=== PATIENT | male | born 1950 | race Caucasian/White ===

== ENCOUNTER → 2016-09-29 | Outpatient (CLI) | payer OTHER ==
--- NOTE | 2016-09-29 16:57 | CT ---
Unenhanced CT Scan of the Right Hip (Pre-Makoplasty Protocol) Clinical History: 66-year-old male who sustained trauma in January 2016, and anticipates a right hip arth roplasty on October 06, 2016, presenting preoperatively. ICD-10 Diagnostic Code: M16.9. Technique: A multidetector unenhanced helical CT scan was obtained from the L4 level through the mid- femoral diaphyses, and reformatted at 0.625 mm increments and then subsequently 2.50 mm helically-acq uired images were obtained to the level of the tibial plateaus. Images were reviewed in soft tissue a nd bone windows. Parasagittal and paracoronal reconstructed images were also reviewed. This exam was tailored as a pre-Makoplasty protocol. Dose reduction measures were also applied. Comparison Study: Spot fluoroscopy film associated with right hip injection, dated April 05, 2016. Findings: There is severe degenerative osteoarthrosis of the right hip with a "qxyr-lw-[id number]" phenome non and associated subchondral geode formation and sclerosis and a "coxa magna" configuration of the femoral head. Moderate degenerative osteoarthrosis of the left hip is also observed. There is severe degenerative disk space narrowing at L4-L5, where there is a vacuum disk phenomenon and L5-S1 where t here is some disk calcification. Moderate centripetal and subcutaneous obesity are present. There are some degenerative features of the SI joints. A few scattered sigmoid colon diverticula are noted. Th ere is a tiny fat-containing periumbilical hernia. There is atherosclerotic calcification associated with the abdominal aortoiliac tree. The urinary bladder is moderately distended. The prostate gland i s normal in size. The seminal vesicles are unremarkable. There is a phlebolith in the caudal right he mipelvis. There is some mild right lateral patellar subluxation and moderate right lateral patellofem oral joint space narrowing with some peripheral lateral and peripheral medial patellar spurs. There i s a [id number] degree of left lateral patellofemoral joint space narrowing, as well. There is n o suprapatellar joint effusion. Impression: Severe osteoarthritic features associated with the right hip, and moderate osteoporosis of the left hip. Images were acquired as part of a preoperative Makoplasty protocol.
== END ==
LOC: FIMAGING 14:14
PROVIDERS: ATTEND Orthopaedic Surgery
DX: Z01.818 Encounter for other preprocedural examination (principal); M16.0 Bilateral primary osteoarthritis of hip

== ENCOUNTER → 2016-10-05 | Outpatient (CLI) | payer OTHER | LOC: BHFA 14:00 | PROVIDERS: ATTEND Internal Medicine Interventional Cardiology | DX: Z01.818 Encounter for other preprocedural examination (principal); R94.31 Abnormal electrocardiogram [ECG] [EKG] | CPT/HCPCS: 78452; 93017; A9500; J2785 ==

== ENCOUNTER 2016-10-06 07:51 | Inpatient (IN) | payer OTHER ==
[~2016-10-06 07:51] MED LIST: ACETAMINOPHEN 325 MG TAB PO ONE; CEFAZOLIN 2 GM/DEXTR 100 ML IV ONE; CHLORHEXIDINE GLUC HIBICLENS 118 ML BTL TP ONE; DEXAMETHASONE 4 MG/ML VIAL IVP ONE; FAMOTIDINE 20 MG TAB PO ONE; ROPI/epiNEPH/KETOROLAC JOINT COCKTAIL IU ONE; SKIN ADHESIVE (DERMABOND) 1 EACH TP ONE; TRANEXAMIC ACID 3,000 MG in NS 50 ML IRR ONE; TRANEXAMIC ACID 3,000 MG/50 ML BAG IRR ONE
[2016-10-06] MEDS ORDERED: LIDOCAINE 1% 5 ML SDV ID PRN (08:46)
[2016-10-06] MEDS ORDERED: LR 1,000 ML IV ONE (08:46)
[2016-10-06] MEDS ORDERED: LIDOCAINE 1% 5 ML SDV ONE (08:51)
[2016-10-06] MEDS ORDERED: MIDAZOLAM 2 MG/2 ML VIAL ONE (09:54)
[2016-10-06] MEDS ORDERED: fentaNYL 100 MCG/2 ML INJ ONE ×3 (09:56→12:04)
[2016-10-06] MEDS ORDERED: PROPOFOL/EMULSION 500 MG/50 ML BOTTLE IV ONE ×2 (09:56→10:44)
[2016-10-06] MEDS ORDERED: LABETALOL HCL 5 MG/ML 20 ML MDV ONE (10:42)
[2016-10-06] MEDS ORDERED: METOCLOPRAMIDE 10 MG/2 ML VIAL IVP PRN (11:42)
[2016-10-06] MEDS ORDERED: TEMAZEPAM 15 MG CAP PO PRN (11:42)
[2016-10-06] MEDS ORDERED: ONDANSETRON 4 MG/2 ML VIAL IVP PRN (11:42)
[2016-10-06] MEDS ORDERED: PROMETHAZINE HCL 25 MG/ML VIAL IVP PRN (11:42)
[2016-10-06] MEDS ORDERED: LACTULOSE 20 GM/30 ML UDCUP PO PRN (11:42)
[2016-10-06] MEDS ORDERED: PROMETHAZINE HCL 25 MG SUPPR PR PRN (11:42)
[2016-10-06] MEDS ORDERED: DIPHENOXYLATE/ATROPINE LOMOTIL 1 TAB PO PRN (11:42)
[2016-10-06] MEDS ORDERED: PHARMACY PAIN CONSULT 1 EA MISC PRN (11:42)
[2016-10-06] MEDS ORDERED: CYCLOBENZAPRINE 10 MG TAB PO PRN (11:42)
[2016-10-06] MEDS ORDERED: diphenhydrAMINE 25 MG CAP PO PRN (11:42)
[2016-10-06] MEDS ORDERED: ONDANSETRON DISINTEGRATING 4 MG TAB PO PRN (11:42)
[2016-10-06] MEDS ORDERED: MAGNESIUM HYDROXIDE 30 ML UDCUP PO PRN (11:42)
[2016-10-06] MEDS ORDERED: BISACODYL 10 MG SUPP PR PRN (11:42)
[2016-10-06] MEDS ORDERED: POLYETHYLENE GLYCOL 3350 17 GM PKT PO PRN (11:42)
--- NOTE | 2016-10-06 11:42 | POSTOPPROG ---
Post Op Note Date of Operation: 10/06/16 Surgeon: Leyda Evans Armored Car Guard: indira evans Anesthesiologist: dr. dennis davis Anesthesia: Spinal Pre-op Diagnosis: Right hip OA Post-op Diagnosis: same Indication: right hip pain due to OA that failed conservative measures Procedure: R YANET ant approach robot assisted Findings: severe hip OA Inf/Abcess present in the surg proc area at time of surgery?: No EBL: 100-500
[2016-10-06] MEDS ORDERED: LR 1,000 ML IV SCH (12:00)
--- NOTE | 2016-10-06 12:14 | DX ---
Portable AP Pelvis, Centered at the Hips, at 11:56 a.m. Clinical History: 66-year-old male in the PACU after a hip arthroplasty. Comparison Study: CT scan of the right hip, dated September 29, 2016. Findings: In the interim, the patient has undergone a complete right hip arthroplasty, with anatomic alignment of the femoral and acetabular components. The femoral cris is well-centered. There is elmer lly expected postoperative air in the soft tissues. There are some degenerative osteoarthritic change s associated with the left hip, with axial joint space narrowing and some femoral and acetabular dege nerative spurring. Impression: Status post right knee arthroplasty, with anatomic alignment.
[2016-10-06] MEDS: ACETAMINOPHEN 325 MG TAB PO SCH ×3 (13:05→23:32)
[2016-10-06] MEDS: ceFAZolin 2 GM/DEXTROSE 100 ML IV SCH ×2 (14:43→21:17)
[2016-10-06] MEDS: oxyCODONE IR 5 MG TAB PO PRN (15:30)
--- NOTE | 2016-10-06 16:58 | DX ---
Intraoperative fluoroscopy History: Right hip arthroplasty. Comparison: CT lower extremity September 29, 2016. Findings: A single intraoperative spot film shows a femoral sizing stem and acetabular cup in expecte d position. Fluoro time: 0.9 seconds. Dose= 0.1 mGy. Impression: Intraoperative fluoroscopy as above.
[2016-10-06] MEDS: metFORMIN HCL 500 MG TAB PO SCH (18:01)
[2016-10-06] MEDS: SENNOSIDES/DOCUSATE SODIUM TAB PO SCH (20:25)
[2016-10-06] MEDS: ASPIRIN 325 MG TAB PO SCH (20:25)
[2016-10-06] MEDS: FAMOTIDINE 20 MG TAB PO SCH (20:25)
[2016-10-07] MEDS: oxyCODONE IR 5 MG TAB PO PRN ×6 (00:28→23:56)
[2016-10-07] MEDS: ACETAMINOPHEN 325 MG TAB PO SCH ×4 (05:24→23:56)
[2016-10-07 05:53] LABS: HEMATOCRIT 35.9 % (40.0-51.0); HEMOGLOBIN 12.4 g/dL (13.7-17.5)
[2016-10-07] MEDS: metFORMIN HCL 500 MG TAB PO SCH ×2 (09:03→18:05)
[2016-10-07] MEDS: SENNOSIDES/DOCUSATE SODIUM TAB PO SCH ×2 (09:04→19:54)
[2016-10-07] MEDS: ASPIRIN 325 MG TAB PO SCH (09:04)
[2016-10-07] MEDS: FAMOTIDINE 20 MG TAB PO SCH ×2 (09:04→19:55)
--- NOTE | 2016-10-07 13:04 | SOAPPROG ---
SOAP Progress Note Assessment/Plan: Assessment: Nicolas is doing well POD 1 s/p R YANET 1. pain management: pain well controlled on oral pain meds 2. VTE ppx: recommend aspirin 325mg daily. 3. Anemia: level expected initially postop. 4. D/c planning: d/c to home tomorrow pending release from PT, that he has assistance from friends and family and that he has a front wheel walker for d/ c. Plan: 10/07/16 13:00 Subjective: Nicolas is doing well today, states pain has improved since prior to surgery. States he does not want to go to SNF anymore and that he would prefer to go home for recovery. Denies SOB, chest pain and N/V Objective: Vital Signs Temp Pulse Resp BP Pulse Ox 37.0 C 106 H 16 111/68 96 10/07/16 11:52 10/07/16 11:52 10/07/16 11:52 10/07/16 11:52 10/07/16 11:52 Laboratory Results 10/07/16 05:23 10/06/16 10/07/16 10/08/16 05:59 05:59 05:59 Intake Total 2855 Output Total 1525 Balance 1330 RLE: incision dressing is clean and dry, NVI, +pf/df ICD10 Worksheet Patient Problems: Problems Problem Status Diagnosed Osteoarthritis of right hip Acute - ICD10 Problem Qualifiers (1) Osteoarthritis of right hip
[2016-10-08] MEDS: ACETAMINOPHEN 325 MG TAB PO SCH ×2 (05:15→12:33)
[2016-10-08 06:25] LABS: HEMATOCRIT 33.7 % (40.0-51.0); HEMOGLOBIN 11.7 g/dL (13.7-17.5)
[2016-10-08 08:01] VITALS: BP 135/83; PULSE 93; RESP 16; TEMP 98.3; O2SAT 95
[2016-10-08] MEDS: ASPIRIN 325 MG TAB PO SCH (08:26)
[2016-10-08] MEDS: oxyCODONE IR 5 MG TAB PO PRN ×2 (08:26→12:34)
[2016-10-08] MEDS: SENNOSIDES/DOCUSATE SODIUM TAB PO SCH (08:26)
[2016-10-08] MEDS: metFORMIN HCL 500 MG TAB PO SCH (08:27)
[2016-10-08] MEDS: FAMOTIDINE 20 MG TAB PO SCH (08:27)
--- NOTE | 2016-10-08 12:08 | SOAPPROG ---
SOAP Progress Note Assessment/Plan: Assessment: Nicolas is doing well POD 2 s/p R YANET 1. pain management: pain well controlled on oral pain meds 2. VTE ppx: recommend aspirin 325mg daily. 3. Anemia: level expected initially postop. 4. D/c planning: d/c to home today. Plan: 10/07/16 13:00 10/08/16 12:07 Subjective: Nicolas is doing well today, denies SOB, chest pain and N/V. Objective: Vital Signs Temp Pulse Resp BP Pulse Ox 36.8 C 93 16 135/83 H 95 10/08/16 07:59 10/08/16 07:59 10/08/16 07:59 10/08/16 07:59 10/08/16 07:59 Laboratory Results 10/08/16 05:25 10/07/16 10/08/16 10/09/16 05:59 05:59 05:59 Intake Total 2855 250 1100 Output Total 1525 950 800 Balance 1330 -700 300 RLE: incision dressing is clean and dry, NVI, +pf/df ICD10 Worksheet Patient Problems: Problems Problem Status Diagnosed Osteoarthritis of right hip Acute - ICD10 Problem Qualifiers (1) Osteoarthritis of right hip
--- NOTE | 2016-10-08 20:40 | GOP ---
[f rep st] OPERATIVE REPORT DATE OF OPERATION: 10/06/2016 SURGEON: Kecia Hernandez MD MEASUREMENT SUPERINTENDENT: Agata Hernandez PA-C ANESTHESIA: Spinal. PREOPERATIVE DIAGNOSIS: Right hip osteoarthritis. POSTOPERATIVE DIAGNOSIS: Right hip osteoarthritis. PROCEDURE PERFORMED: Right total hip arthroplasty with computer navigation and robotic assist. FINDINGS: ESTIMATED BLOOD LOSS: 30 cc. IMPLANTS: Accolade II size 5 at 127, acetabular component 54 mm Tritanium. The liner is a Trident X3 56 mm. The head is a Biolox Delta 36 mm +2.5. PATIENT AGE: 66 GENDER: Male INDICATIONS: The patient has progressively worsening arthritis of the hip which has failed medical management. The patient understands the treatment option including continued non-operative care and has selected surgical intervention. The patient has decided to undergo total hip arthroplasty via the direct anterior approach understanding the risks of the procedure including , but not limited to, neurovascular injury, infection, persistent pain, component wear and loosening, deep venous thrombosis, pulmonary embolism, limb length inequality (including dislocation), and intraoperative fractures. DESCRIPTION OF PROCEDURE: After proper identification of the patient including verification and marking the surgical site, the patient was brought to the operating room and placed in the supine position. All bony prominences were well padded. Anesthesia was induced without complication and intravenous prophylactic antibiotics were administered prior to skin incision. After prepping and draping in the usual sterile fashion, attention was drawn to the contralateral pelvis for attachment of the computer navigation tracker. Three percutaneous incisions were made over the iliac crest and the pelvic tracker was affixed using threaded 3.5 mm pins yielding excellent fixation. Using computer navigation the patient's leg length and topographical pelvic anatomy was registered without complication. Attention was then drawn to surgical exposure of the hip. An incision was made with a #10 Bard Pedrito blade starting 3 cm lateral and 3 cm distal to the anterior superior iliac spine measuring 8 cm to 10 cm and coursing distally toward the greater trochanter. The skin and subcutaneous tissues were divided sharply down the fascia claritza. The fascia claritza was incised in line with the skin incision exposing the underlying tensor fascia claritza muscle. This muscle was bluntly elevated from the fascia and the first extracapsular Cobra retractor was placed laterally at the junction of the superior femoral neck and greater trochanter. The lateral femoral circumflex vessels were identified, cauterized and divided with the Aquamantys bipolar cautery. The deep investing fascia of the TFL was divided to allow proper mobilization of the muscle preventing damage during retraction. The reflected head of the rectus femoris muscle was elevated off the anterior hip capsule and a medial Cobra retractor was placed just proximal to the lesser trochanter. The anterior capsulotomy was made sharply from the superolateral acetabulum to the saddle junction of the superior femoral neck and greater trochanter, then coursing inferomedial towards the lesser trochanter. The retractors were then placed in the intracapsular position for femoral neck osteotomy. Corresponding to preoperative templating the osteotomy was made with the oscillating saw protecting the greater trochanter and soft tissues. The femoral head was removed from the acetabulum with a corkscrew and confirmed to be severely arthritic with exposed bone, deformity and osteophytes. Similar finding were confirmed in the acetabulum. The Arch table extension was then placed in 40 degrees external rotation. Attention was then drawn to the acetabular preparation. After placement of the anterior and posterior Cobra retractors outside the labrum and intrascapular the circumferential labrum was removed sharply. The foveal contents were then removed and hemostasis obtained with cautery. The anatomy of the acetabulum was then registered using computer navigation. The first reamer selected was sized using the removed femoral head. Reaming began with robotic assist at 40 degrees of abduction and 20 degrees of anteversion using computer navigation. Reaming ceased 0 mm less than the definitive acetabular component. The final acetabular component was inserted using the computer to achieve proper orientation yielding excellent purchase and stability in the acetabulum. The final acetabular liner was then placed and its seating confirmed. Attention was then turned to the femur. The Arch table extension was placed in extension and adduction delivering the osteotomized femoral neck into the wound. A 2-pronged femoral elevator was placed at the calcar and another at the tip of the greater trochanter. The posterolateral capsule was released with cautery allowing mobilization of the femur lateral and anterior for preparation. The external rotators were visualized and preserved. A curette and rongeur were used to open the starting point for broaching. Serial broaching started with the #0 broach and ended with the broach that exhibited excellent fit in the proximal femur. A change in pitch during mallet strikes was accompanied by the inability to advance the broach any further. The trial reduction was performed and fluoroscopic navigation was utilized to check limb length. Adjustments were made to equalize limb length accordingly. After the final trials were accepted they were removed and the wound was copiously lavaged. The femoral component was seated to the same depth as the final broach and the femoral head was impacted onto the clean trunnion. The hip was then reduced for the final time and once more fluoroscopic navigation used to check that limb length equality was achieved. The wound was irrigated and closed in layers, the fascia claritza with 2-0 Quill, the subcutaneous tissue with a 2-0 Quill, and the skin with Dermabond, including the small incisions for computer navigation. Sterile dressings were applied. Final sharps and sponge counts were accurate. The patient was then transferred to a hospital bed and brought to the recovery room in stable condition. /[id number]/MODL MTDD
== END 2016-10-08 12:57 | disposition home or self-care (01) | DRG 470 ==
LOC: F3N 07:51
PROVIDERS: ADMIT Orthopaedic Surgery; ATTEND Orthopaedic Surgery
PROC: 0SR904Z Replacement of Right Hip Joint with Ceramic on Polyethylene Synthetic Substitute, Open Approach (ICD-10-PCS; principal; 2016-10-06 10:15)
DX: M16.11 Unilateral primary osteoarthritis, right hip (principal); E11.9 Type 2 diabetes mellitus without complications
CPT/HCPCS: 97116-GP; 97161-GP; 97165-GO; A9500; G8978-GP-CI; G8978-GP-CJ; G8979-GP-CI; G8980-GP-CI; G8987-GO-CI; G8988-GO-CI; G8989-GO-CI; J0171; J0690; J1100; J1885; J2250; J2704; J2785; J2795; J3010; J3490

== ENCOUNTER 2017-03-08 18:47 | Emergency (ER) | payer OTHER ==
[2017-03-08 18:58] VITALS: TEMP 99
--- NOTE | 2017-03-08 19:12 | CPEKG ---
Heart Rate: 83 RR Interval: 723 P-R Interval: 184 QRSD Interval: 96 QT Interval: 396 QTC Interval: 466 P Aurora: 52 QRS Aurora: 103 T Wave Aurora: 23 EKG Severity - BORDERLINE ECG - EKG Impression: SINUS RHYTHM EKG Impression: CONSIDER RIGHT VENTRICULAR HYPERTROPHY Electronically Signed By: Marcus Mancini 08-Mar-2017 19:43:24
[2017-03-08] MEDS ORDERED: NS 1,000 ML IV ONE (19:39)
--- NOTE | 2017-03-08 19:42 | EDPHY ---
H & P Stated Complaint: syncope X2 Time Seen by Provider: 03/08/17 19:02 HPI/ROS: CHIEF COMPLAINT: Syncope HISTORY OF PRESENT ILLNESS: Patient is a 66-year-old man who is visiting from [place] . He states that he has not eaten since breakfast and has not had anything to drink today other than soda. They were standing in a restaurant lobby to get pizza and that after he stayed there for about a minute he felt lightheaded and then woke up on the floor. He denies chest pain, palpitations or shortness of breath. He denies head injury neck injury back injury. His friend helping get up into a chair. He states he was feeling better in the chair and then all son fell down again. He does not have any seizure history. No cardiac or pulmonary history. He denies leg pain or swelling. He was given a L of IV fluids by EMS and now feels completely better. He states that he thinks he was just dehydrated. He has not had any recent fevers or illness. REVIEW OF SYSTEMS: Constitutional: denies: chills, fever, recent illness, recent injury EENTM: denies: blurred vision, double vision, nose congestion Respiratory: denies: cough, shortness of breath Cardiac: See HPI denies: chest pain, irregular heart rate, palpitations Gastrointestinal/Abdominal: denies: abdominal pain, diarrhea, nausea, vomiting, blood streaked stools Genitourinary: denies: dysuria, frequency, hematuria, pain Musculoskeletal: denies: joint pain, muscle pain Skin: denies: lesions, rash, jaundice, bruising Neurological: denies: headache, numbness, paresthesia, tingling, dizziness, weakness Hematologic/Lymphatic: denies: blood clots, easy bleeding, easy bruising Immunologic/allergic: denies: HIV/AIDS, transplant EXAM: GENERAL: Well-appearing, obese HEAD: Atraumatic, normocephalic. EYES: Pupils equal round and reactive to light, extraocular movements intact, sclera anicteric, conjunctiva are normal. ENT: TMs normal, nares patent, oropharynx clear without exudates. Moist mucous membranes. NECK: Normal range of motion, supple without lymphadenopathy or JVD. LUNGS: Breath sounds clear to auscultation bilaterally and equal. No wheezes rales or rhonchi. HEART: Regular rate and rhythm without murmurs, rubs or gallops. ABDOMEN: Soft, nontender, normoactive bowel sounds. No guarding, no rebound. No masses appreciated. BACK: No CVA tenderness, no spinal tenderness, step-offs or deformities EXTREMITIES: Normal range of motion, no pitting or edema. No clubbing or cyanosis. NEUROLOGICAL: Cranial nerves II through XII grossly intact. Normal speech, normal gait. 5/5 strength, normal movement in all extremities, normal sensation PSYCH: Normal mood, normal affect. SKIN: Warm, dry, normal turgor, no visible rashes or lesions. Source: Patient Exam Limitations: No limitations - Personal History Current Tetanus/Diphtheria Vaccine: Unsure Current Tetanus Diphtheria and Acellular Pertussis (TDAP): Unsure - Medical/Surgical History Hx Asthma: No Hx Chronic Respiratory Disease: No Hx Diabetes: No Hx Cardiac Disease: No Hx Renal Disease: No Hx Cirrhosis: No Hx Alcoholism: No Hx HIV/AIDS: No Hx Splenectomy or Spleen Trauma: No Other PMH: Gallbladder surgery at age 35 - Family History Significant Family History: No pertinent family hx - Social History Smoking Status: Never smoked Alcohol Use: Sober Drug Use: None Constitutional: Initial Vital Signs Temperature (C) 37.2 C 03/08/17 18:52 Heart Rate 95 03/08/17 18:52 Respiratory Rate 16 03/08/17 18:52 Blood Pressure 130/76 H 03/08/17 18:52 O2 Sat (%) 93 03/08/17 18:52 O2 Delivery Mode Room Air Allergies/Adverse Reactions: No Known Allergies Allergy (Unverified 09/24/16 10:31) Home Medications: Medication Instructions Recorded metFORMIN HCL [Glucophage 500 mg 500 mg PO BIDMEAL 10/06/16 (*)] Acetaminophen [Tylenol 325mg (*)] 650 mg PO Q6HRS #0 tab 10/07/16 Aspirin [Aspirin 325 mg (*)] 325 mg PO DAILY #0 tab 10/07/16 Sennosides/Docusate Sodium 1 - 2 tab PO BID #0 tab 10/07/16 [Senokot-S] celeCOXIB [Celebrex (*)] 200 mg PO DAILY #20 cap 10/07/16 oxyCODONE IR [Oxycodone Ir (*)] 5 - 10 mg PO Q3HRS PRN #120 tab 10/07/16 Medical Decision Making - Diagnostics EKG Interpretation: An EKG obtained and was read and documented in trace view. Please see trace view for full reading and report. Sinus rhythm, no acute ischemic changes ED Course/Re-evaluation: We discussed the test results. The patient is relieved. He is feeling very well. He is eager to go home. He has eaten and tolerated p.o.. Differential Diagnosis: Partial list of the Differential diagnosis considered include but were not limited to; syncope, dehydration and although unlikely based on the history and physical exam, I also considered arrhythmia, acute coronary disease, infection, stroke. I discussed these differential diagnoses and the plan with the patient as well as the usual and expected course. The patient understands that the diagnosis is provisional and that in medicine we are not always correct and that further workup is often warranted. Usual and customary warnings were given. All of the patient's questions were answered. The patient was instructed to return to the emergency department should the symptoms at all worsen or return, otherwise to followup with the physician as we discussed. - Data Points Laboratory Results: Laboratory Results 03/08/17 19:05 03/08/17 19:05 Medications Given: Discontinued Medications Sodium Chloride (Ns) 1,000 mls @ 0 mls/hr IV ONCE ONE; Wide Open PRN Reason: Protocol Stop: 03/08/17 19:40 Last Admin: 03/08/17 19:42 Dose: 1,000 mls Departure - Departure Disposition: Home, Routine, Self-Care Clinical Impression: Syncope and collapse, Dehydration Condition: Fair Instructions: Dehydration (ED), Syncope (ED) Referrals: Patient,NotPresent [Unknown] - As per Instructions
[2017-03-08 19:51] LABS: % IMMATURE GRANULYOCYTES 0.5 % (0.0-1.1); ABSOLUTE IMMATURE GRANULOCYTES 0.04 10^3/uL (0.00-0.10); ADD DIFF? NO; ADD MORPH? NO; ADD SCAN? NO; ATYPICAL LYMPHOCYTE FLAG 0 (0-99); FRAGMENT RBC FLAG 0 (0-99); HEMOGLOBIN 13.8 g/dL (13.7-17.5); LEFT SHIFT FLG 0 (0-99); LIPEMIA HEMOLYSIS FLAG 90 (0-99); MEAN CELL HEMOGLOBIN 28.3 pg (27.9-34.1); MEAN CELL HEMOGLOBIN CONCENTR. 34.5 g/dL (32.4-36.7); MEAN PLATELET VOLUME 10.3 fL (8.7-11.7); PLATELET CLUMPS FLAG 0 (0-99); PLATELET COUNT 255 10^3/uL (150-400); RED BLOOD CELL COUNT 4.88 10^6/uL (4.40-6.38)
[2017-03-08 19:53] LABS: ANION GAP 8 mEq/L (8-16); CALCIUM 9.5 mg/dL (8.5-10.4); CARBON DIOXIDE 22 mEq/l (22-31); CHLORIDE 106 mEq/L (97-110); CREATININE 0.9 mg/dL (0.7-1.3); GLOMERULAR FILTRATION RATE > 60; GLUCOSE 175 mg/dL (70-100); POTASSIUM 3.7 mEq/L (3.5-5.2); SODIUM 136 mEq/L (134-144)
[2017-03-08 20:04] LABS: TROPONIN I < 0.012 ng/mL (0-0.034)
[2017-03-08 21:21] VITALS: BP 128/80; PULSE 90; RESP 20; O2SAT 92
== END 2017-03-08 21:21 | disposition home or self-care (01) ==
LOC: EDUNIT#
DX: R55 Syncope and collapse (principal); E86.0 Dehydration; Z79.82 Long term (current) use of aspirin

== ENCOUNTER 2018-10-11 05:46 | Inpatient (IN) | payer OTHER, MEDICARE ==
--- NOTE | 2018-10-11 06:24 | PDHPUP ---
History & Physical Update H&P update statement: This history and physical update is based on an assessment of the patient which was completed after admission or registration (within 24 hours), but prior to the surgery/procedure. H&P update: H&P reviewed & patient examined, no change in patient's condition since H&P completed
[2018-10-11] MEDS ORDERED: ACETAMINOPHEN 325 MG TAB PO ONE (06:32)
[2018-10-11] MEDS ORDERED: ceFAZolin 2 GM/DEXTROSE 100 ML IV ONE (06:32)
[2018-10-11] MEDS ORDERED: FAMOTIDINE 20 MG TAB PO ONE (06:32)
[2018-10-11] MEDS ORDERED: LR 1,000 ML IV ONE (07:05)
[2018-10-11] MEDS ORDERED: NALOXONE HCL 0.4 MG/ML INJ IVP PRN (07:27)
[2018-10-11] MEDS ORDERED: PROMETHAZINE HCL 25 MG/ML INJ IVP PRN ×2 (07:27→09:45)
[2018-10-11] MEDS ORDERED: ACETAMINOPHEN 500 MG TAB PO PRN (07:27)
[2018-10-11] MEDS ORDERED: oxyCODONE IR 5 MG TAB PO PRN (07:27)
[2018-10-11] MEDS ORDERED: fentaNYL 100 MCG/2 ML INJ IVP PRN (07:27)
[2018-10-11] MEDS ORDERED: ALBUTEROL 3 ML DEYVIAL IH PRN (07:27)
[2018-10-11] MEDS ORDERED: ONDANSETRON 4 MG/2 ML VIAL IVP PRN ×2 (07:27→09:45)
[2018-10-11] MEDS ORDERED: MIDAZOLAM 2 MG/2 ML VIAL IVP ONE (07:27)
[2018-10-11] MEDS ORDERED: HYDROmorphONE/DILAUDID 2 MG/ML INJ IVP PRN (07:27)
[2018-10-11] MEDS ORDERED: DEXAMETHASONE 4 MG/ML VIAL IVP PRN (07:27)
--- NOTE | 2018-10-11 07:29 | PDANEPAE ---
ANE History of Present Illness Left Hip YANET ANE Past Medical History - Cardiovascular History Hx Hypertension: No Hx Arrhythmias: No Hx Chest Pain: No Hx Coronary Artery / Peripheral Vascular Disease: No Hx CHF / Valvular Disease: No Hx Palpitations: No Cardiovascular History Comment: RECENT SINUS TACHYCARDIA. HAS CARDIAC APPT FOR PREOP - Pulmonary History Hx COPD: No Hx Asthma/Reactive Airway Disease: No Hx Recent Upper Respiratory Infection: No Hx Oxygen in Use at Home: No Hx Sleep Apnea: No Sleep Apnea Screening Result - Last Documented: Negative - Neurologic History Hx Cerebrovascular Accident: No Hx Seizures: No Hx Dementia: No - Endocrine History Hx Diabetes: Yes Endocrine History Comment: DM II - Renal History Hx Renal Disorders: No - Liver History Hx Hepatic Disorders: Yes Hepatic History Comment: CHOLECYSTECTOMY - Neurological & Psychiatric Hx Hx Neurological and Psychiatric Disorders: No - Cancer History Hx Cancer: No - Congenital Disorder History Hx Congenital Disorders: No - GI History Hx Gastrointestinal Disorders: No Gastrointestinal History Comment: OCCAS HEARTBURN - Other Health History Other Health History: none - Chronic Pain History Chronic Pain: No - Surgical History Prior Surgeries: Right YANET 09/2016. cataract surgery. CHOLECYSTECTOMY. TONSILLECTOMY CHILD ANE Review of Systems Review of Systems: - Exercise capacity METS (RN): 4 METS ANE Patient History - Allergies Allergies/Adverse Reactions: No Known Allergies Allergy (Verified 10/11/18 07:18) - Home Medications Home Medications: Acetaminophen [Tylenol 325mg (*)] 650 mg PO Q6 PRN 09/22/18 [Last Taken 10/08/18 ] Atorvastatin Calcium [Lipitor 10 mg (*)] 10 mg PO DAILY 09/22/18 [Last Taken Unknown] metFORMIN HCL [Metformin HCl] 500 mg PO BIDMEAL 09/22/18 [Last Taken 10/10/18] - NPO status NPO Since - Liquids (Date): 10/10/18 NPO Since - Liquids (Time): 18:30 NPO Since - Solids (Date): 10/10/18 NPO Since - Solids (Time): 18:30 - Smoking Hx Smoking Status: Never smoked - Family Anes Hx Family Hx Anesthesia Complications: none ANE Labs/Vital Signs - Vital Signs Blood Pressure: 144/99 Heart Rate: 96 Respiratory Rate: 16 O2 Sat (%): 91 Height: 177.8 cm Weight: 110.223 kg ANE Physical Exam - Airway Neck exam: FROM Mallampati Score: Class 2 Mouth exam: normal dental/mouth exam - Pulmonary Pulmonary: clear to auscultation - Cardiovascular Cardiovascular: regular rate and rhythym - ASA Status ASA Status: II ANE Anesthesia Plan Anesthesia Plan: spinal
[2018-10-11] MEDS ORDERED: TRANEXAMIC ACID 3,000 MG/50 ML BAG IRR ONE (07:30)
[2018-10-11] MEDS ORDERED: TRANEXAMIC ACID 3,000 MG in NS (SYRINGE) 50 ML IRR ONE (08:00)
[2018-10-11] MEDS ORDERED: ROPIVACAINE 0.2% 80 MG, EPINEPHrine 0.2 MG, KETOROLAC TROMETHAMINE 30 MG in SYRINGE 0 ML IU ONE (08:00)
[2018-10-11] MEDS ORDERED: PROMETHAZINE HCL 25 MG SUPPR PR PRN (09:45)
[2018-10-11] MEDS ORDERED: METOCLOPRAMIDE 10 MG/2 ML VIAL IVP PRN (09:45)
[2018-10-11] MEDS ORDERED: MAGNESIUM HYDROXIDE 30 ML UDCUP PO PRN (09:45)
[2018-10-11] MEDS ORDERED: POLYETHYLENE GLYCOL 3350 17 GM PKT PO PRN (09:45)
[2018-10-11] MEDS ORDERED: diphenhydrAMINE 25 MG CAP PO PRN (09:45)
[2018-10-11] MEDS ORDERED: TEMAZEPAM 15 MG CAP PO PRN (09:45)
[2018-10-11] MEDS ORDERED: LACTULOSE 20 GM/30 ML UDCUP PO PRN (09:45)
[2018-10-11] MEDS ORDERED: DIPHENOXYLATE/ATROPINE LOMOTIL 1 TAB PO PRN (09:45)
[2018-10-11] MEDS ORDERED: D50W 25 GM/50 ML SYR IVP PRN (09:45)
[2018-10-11] MEDS ORDERED: BISACODYL 10 MG SUPP PR PRN (09:45)
[2018-10-11] MEDS ORDERED: ONDANSETRON DISINTEGRATING 4 MG TAB PO PRN (09:45)
--- NOTE | 2018-10-11 09:45 | POSTOPPROG ---
Post Op Note Date of Operation: 10/11/18 Surgeon: Leyda Evans Security Coordinator: indira evans PA-C and Ada Cortez PA-C Anesthesiologist: dr. romero Anesthesia: Spinal Pre-op Diagnosis: left hip OA Post-op Diagnosis: same Indication: left hip pain Procedure: L YANET ant approach Findings: severe hip OA Inf/Abcess present in the surg proc area at time of surgery?: No EBL: 100-500
[2018-10-11] MEDS ORDERED: LR 1,000 ML IV SCH (10:00)
[2018-10-11] MEDS ORDERED: fentaNYL 100 MCG/2 ML INJ ONE (10:14)
[2018-10-11] MEDS ORDERED: oxyCODONE IR 5 MG TAB ONE (10:31)
--- NOTE | 2018-10-11 11:08 | PDMN ---
Medical Necessity Medical necessity: [facility] [place] S560 [place] Arthroplasty, A-2 days: 68 yo s/p L YANET, [facility] IP only
--- NOTE | 2018-10-11 11:34 | POSTANESTH ---
Post Anesthetic Evaluation Cardiovascular Status: Normal, Stable Respiratory Status: Normal, Stable Level of Consciousness/Mental Status: Can Participate in Eval, Alert and Oriented Pain Control: Adequate, Prn Tx Ordered Nausea/Vomiting Control: Adequate, Prn Tx Ordered Complications Possibly Related to Anesthesia: None Noted
[2018-10-11] MEDS: ACETAMINOPHEN 325 MG TAB PO SCH ×2 (13:53→18:36)
[2018-10-11] MEDS: CYCLOBENZAPRINE 10 MG TAB PO PRN (13:53)
[2018-10-11] MEDS: oxyCODONE IR 5 MG TAB PO PRN ×2 (13:53→18:38)
[2018-10-11] MEDS: INSULIN REGULAR HUMAN 100 UNIT/ML UNIT SC SCH ×3 (15:19→21:59)
[2018-10-11] MEDS: ceFAZolin 2 GM/DEXTROSE 100 ML IV SCH (15:43)
[2018-10-11] MEDS: metFORMIN HCL 500 MG TAB PO SCH (18:37)
[2018-10-11] MEDS: ASPIRIN 81 MG CHEWABLE TAB PO SCH (21:59)
[2018-10-11] MEDS: SENNOSIDES/DOCUSATE SODIUM TAB PO SCH (21:59)
[2018-10-11] MEDS: FAMOTIDINE 20 MG TAB PO SCH (22:00)
[2018-10-12] MEDS: ACETAMINOPHEN 325 MG TAB PO SCH ×3 (00:38→12:39)
[2018-10-12] MEDS: ceFAZolin 2 GM/DEXTROSE 100 ML IV SCH (00:44)
[2018-10-12] MEDS: oxyCODONE IR 5 MG TAB PO PRN ×3 (03:17→12:39)
[2018-10-12] MEDS: metFORMIN HCL 500 MG TAB PO SCH (07:25)
[2018-10-12] MEDS: ASPIRIN 81 MG CHEWABLE TAB PO SCH (07:26)
[2018-10-12] MEDS: FAMOTIDINE 20 MG TAB PO SCH (07:26)
[2018-10-12] MEDS: SENNOSIDES/DOCUSATE SODIUM TAB PO SCH (07:26)
[2018-10-12] MEDS: CYCLOBENZAPRINE 10 MG TAB PO PRN ×2 (07:44→15:55)
[2018-10-12] MEDS ORDERED: ATORVASTATIN CALCIUM 10 MG TAB PO SCH (09:00)
[2018-10-12] MEDS: INSULIN REGULAR HUMAN 100 UNIT/ML UNIT SC SCH ×2 (09:29→12:40)
--- NOTE | 2018-10-12 10:46 | SOAPPROG ---
SOAP Progress Note Assessment/Plan: Assessment: Patient is doing well POD 1 s/p L YANET Pain management: pain is well controlled on oral pain meds. VTE ppx: recommend aspirin 81 mg BID for 4 weeks, cont KIRIT and SCDs Anemia: level is expected initially postop. Asymptomatic. Continue to monitor D/c planning: Patient has done better than anticipated and would like to be discharged to home today as he is unable to sleep well at hospital. Patient must be released from PT before discharge to home. If patient changes his mind , his nurse will notify us. postop urinary retention: straight cath'd yesterday, resolved today. Plan: 10/12/18 10:44 10/12/18 10:45 Subjective: patient is resting comfortably, denies SOB, chest pain and n/v. states he did not sleep well at the hospital Objective: Vital Signs Temp Pulse Resp BP Pulse Ox 36.7 C 105 H 18 136/84 H 92 10/12/18 07:23 10/12/18 07:23 10/12/18 07:23 10/12/18 07:23 10/12/18 07:23 Laboratory Results 10/12/18 04:19 10/11/18 10/12/18 10/13/18 05:59 05:59 05:59 Intake Total 3465 200 Output Total 1725 150 Balance 1740 50 LLE: incision is clean and dry, NVI, +pf/df ICD10 Worksheet Patient Problems: Problems Problem Status Onset Primary localized osteoarthritis of left hip Acute Osteoarthritis of right hip Acute
--- NOTE | 2018-10-12 11:25 | ASMTLACE ---
LACE Length of stay for Answers: 2 days current admission Acuity / Level of Answers: Yes Care: Did the patient have an inpatient admission? Comorbidities - select Answers: Diabetes (uncontrolled or all that apply controlled) # of Emergency department Answers: 0 visits in the last 6 months Score: 6 Date Signed: 10/12/2018 11:25 AM Electronically Signed By:EMILY Donato
[2018-10-12 12:22] VITALS: BP 127/87
--- NOTE | 2018-10-13 16:08 | GOP ---
DATE OF OPERATION: 10/11/2018 SURGEON: Kecia Hernandez MD CARCASS TRIMMER: VINICIUS Salomon ANESTHESIA: Spinal. PREOPERATIVE DIAGNOSIS: Left hip osteoarthritis. POSTOPERATIVE DIAGNOSIS: Left hip osteoarthritis. PROCEDURE PERFORMED: Left total hip arthroplasty with x-ray. FINDINGS: ESTIMATED BLOOD LOSS: 200 cc. INDICATIONS: The patient has progressively worsening arthritis of the hip which has failed medical m anagement. The patient understands the treatment options including continued non-operative care and has selected surgical intervention. The patient has decided to undergo total hip arthroplasty via th e direct anterior approach, understanding the risks of the procedure including, but not limited to, n eurovascular injury, infection, persistent pain, component wear and loosening, deep venous thrombosis , pulmonary embolism, limb length inequality, hip instability (including dislocation), and intra-oper ative fractures. DESCRIPTION OF PROCEDURE: After proper identification of the patient including verification and elisha ing the surgical site, the patient was brought to the operating room and placed in the supine positio n. All bony prominences were well padded. Anesthesia was induced without complication and intraveno us prophylactic antibiotics were administered prior to skin incision. The operative leg was placed in the Trumpf Arch table extension and the well leg in a Yellofin leg ho lder. The patient was prepped and draped in the usual sterile fashion. The C-arm was draped for int ra-operative fluoroscopy to check acetabular position, femoral component position including leg lengt h and femoral offset. Attention was then drawn to surgical exposure of the hip. An incision was made with a #10 [place] r blade starting 3 cm lateral and 3 cm distal to the anterior superior iliac spine measuring 8-10 cm and coursing distally toward the greater trochanter. The skin and subcutaneous tissues were divided sharply down to the fascia claritza. The fascia claritza was incised in line with the skin incision exposing the underlying tensor fascia claritza muscle. The muscle was bluntly elevated from the fascia and the f irst extracapsular Cobra retractor was placed laterally at the junction of the superior femoral neck and greater trochanter. The lateral femoral circumflex vessels were identified, cauterized, and divi ded with the Aquamantys bipolar cautery. The deep investing fascia of the TFL was divided to allow p milli mobilization of the muscle preventing damage during the retraction. The reflected head of the rectus femoris muscle was elevated off the anterior hip capsule and a medial Cobra retractor was plac ed just proximal to the lesser trochanter. The anterior capsulotomy was made sharply from the superolateral acetabulum to the saddle junction of the superior femoral neck and greater trochanter, then coursing inferomedial towards the lesser troc hanter. The retractors were then placed in the intracapsular position for femoral neck osteotomy. C orresponding to pre-operative templating, the osteotomy was made with the oscillating saw carefully p rotecting the greater trochanter and soft tissues. The femoral head was removed from the acetabulum with a corkscrew and confirmed to be severely arthritic with exposed bone, deformity and osteophytes. Similar findings were confirmed in the acetabulum. The Arch table extension was then placed in 40 degrees external rotation. Attention was then drawn to the acetabular preparation. After placement of the anterior and posterio r Cobra retractors outside the labrum and intracapsular, the circumferential labrum was removed sharp ly. The foveal contents were then removed and hemostasis obtained with cautery. The first reamer selected was sized using the removed femoral head. Reaming began with medialization and then commenced in 2 mm increments at 45 degrees of abduction and 15 degrees of anteversion using fluoroscopic navigation. Reaming ceased 1 mm less than the definitive acetabular component and wanda esponded to the pre-operative templating. The final acetabular component was inserted using fluorosc opy to achieve proper orientation yielding excellent purchase and stability in the acetabulum. The f inal acetabular liner was then placed and its seating confirmed. Attention was then turned to the femur. The Arch table extension was placed in extension and adducti on, delivering the osteotomized femoral neck into the wound. A 2-pronged femoral elevator was placed at the calcar and another at the tip of the greater trochanter. The posterolateral capsule was rele ased with cautery allowing mobilization of the femur lateral and anterior for preparation. The exter nal rotators were visualized and preserved. A curette and rongeur were used to open the starting poi nt for broaching. Serial broaching started with the #0 broach and ended with the broach that exhibit ed excellent fit in the proximal femur. A change in pitch during mallet strikes was accompanied by t he inability to advance the broach any further. The trial reduction was performed and fluoroscopic n avigation was utilized to check limb length. Adjustments were made to equalize limb length according ly. After the final trials were accepted they were removed and the wound was copiously lavaged. The femo ral component was seated to the same depth as the final broach and the femoral head was impacted onto the clean trunnion. The hip was then reduced for the final time and once more fluoroscopy was used to check that limb length equality was achieved. The wound was irrigated and closed in layers, the fascia claritza with 2-0 Quill, the subcutaneous tissue with 2-0 Quill, and the skin with Dermabond. Sterile dressings were applied. Final sharps and spon ge counts were accurate. The patient was then transferred to a hospital bed and brought to the [facility] room in stable condition. IMPLANTS: Accolade II, size 6 at 127. Acetabular component is a trident II 54 mm. Liner is a Tride nt X3, 36 mm. Head is Biolox Delta 36 mm, minus 5. /[id number]/MODL
--- NOTE | 2018-10-16 13:50 | GDS ---
ADMISSION DIAGNOSIS: Left hip osteoarthritis. DISCHARGE DIAGNOSIS: Left hip osteoarthritis. PROCEDURE: Right total hip arthroplasty. VTE PROPHYLAXIS: Recommend aspirin 81 mg twice daily for 4 weeks. BRIEF DESCRIPTION OF HOSPITAL STAY: Patient was admitted for an elective joint arthroplasty. The gisela mackay tolerated the procedure well and has passed physical therapy. The patient was given appropriat e antibiotic prophylaxis and venous thromboembolism prophylaxis. The patient's pain was well control led on oral pain medication, patient was holding down food, and had urinated. Decision was made to d ischarge the patient. The patient was given post-operative prescriptions pre-operatively. PLAN: Followup scheduled with Dr. Hernandez at [facility] on November 02 at 9:30 a.m. /[id number]/MODL
== END 2018-10-12 16:02 | disposition home or self-care (01) | DRG 470 ==
LOC: F3N 05:46
PROVIDERS: ADMIT Orthopaedic Surgery; ATTEND Orthopaedic Surgery
PROC: 0SRB04Z Replacement of Left Hip Joint with Ceramic on Polyethylene Synthetic Substitute, Open Approach (ICD-10-PCS; principal; 2018-10-11 08:00)
DX: M16.12 Unilateral primary osteoarthritis, left hip (principal); Z96.641 Presence of right artificial hip joint; Z23 Encounter for immunization; R33.9 Retention of urine, unspecified
CPT/HCPCS: 97116-GP; 97161-GP; G0008; J0171; J0690; J1815; J1885; J2250; J2795; J3010